=== PATIENT | male | born 1980 | race Caucasian/White ===

== ENCOUNTER 2024-07-10 15:48 | Emergency (ER) | payer BC ==
[~2024-07-10] VITALS: Ht 175.3 cm; Wt 88.5 kg
[2024-07-10] MEDS ORDERED: AMLODIPINE-OLM1 EAC1 (16:49)
[2024-07-10] MEDS ORDERED: ATOMOXETINE HCL40 MG (16:50)
[2024-07-10] MEDS ORDERED: LAMICTAL150 M1 (16:50)
[2024-07-10] MEDS ORDERED: WEGOVY2.4 MG/0.7 (16:51)
[2024-07-10] MEDS ORDERED: LIDOCAINE HCL 1% 10ML VIAL ONE (18:54)
[2024-07-10] MEDS ORDERED: CEFTRIAXONE SODIUM 1,000 MG VIAL ONE (19:24)
[2024-07-10] MEDS ORDERED: BACITRACIN-NEOMYCIN-POLYMYXIN 0.9 GM PACKET TOP ONE (19:24)
[2024-07-10] MEDS ORDERED: KETOROLAC TROMETHAMINE 60 MG VIAL IM ONE (19:29)
[2024-07-10] MEDS ORDERED: NASAL MIST126 ML NASAL (19:53)
[2024-07-10] MEDS ORDERED: DUI500 PO (19:53)
[2024-07-10] MEDS ORDERED: ADVIL DUAL ACT1 EACH PO (19:53)
== END 2024-07-10 22:02 | disposition home or self-care (01) ==
LOC: ER 16:17
DX: S51.812A Laceration without foreign body of left forearm, initial encounter (principal); W19.XXXA Unspecified fall, initial encounter; Y93.89 Activity, other specified; Y92.89 Other specified places as the place of occurrence of the external cause; Y99.8 Other external cause status; S50.02XA Contusion of left elbow, initial encounter; S50.312A Abrasion of left elbow, initial encounter